=== PATIENT | male | born 1980 | race Caucasian/White ===

== ENCOUNTER 2020-07-23 19:18 | Emergency (ER) | payer OTHER ==
[~2020-07-23] VITALS: Ht 177.8 cm; Wt 61.2 kg
[2020-07-23 19:53] LABS: BASOPHILS ABSOLUTE AUTO 0.08 K/mm3 (0.00-0.23); BASOPHILS PERCENT AUTO 1 % (0-2); EOSINOPHILS ABSOLUTE AUTO 0.16 K/mm3 (0.00-0.68); EOSINOPHILS PERCENT AUTO 2 % (0-6); Hematocrit 35.1 % (37.0-53.0); Hemoglobin 11.4 g/dL (13.5-17.5); IMMATURE GRAN ABSOLUTE AUTO 0.06 K/mm3 (0.00-0.10); IMMATURE GRAN PERCENT AUTO 1 % (0-1); LYMPHOCYTES ABSOLUTE AUTO 3.89 K/mm3 (0.84-5.20); LYMPHOCYTES PERCENT AUTO 43 % (21-46); MONOCYTES ABSOLUTE AUTO 0.46 K/mm3 (0.16-1.47); MONOCYTES PERCENT AUTO 5 % (4-13); Mean Corpuscular HGB 31.2 pg (26.0-34.0); Mean Corpuscular HGB Conc 32.5 g/dL (31.5-36.5); Mean Corpuscular Volume 96 fL (80-100); Mean Platelet Volume 9.3 fL (9.1-12.4); NEUTROPHILS ABSOLUTE AUTO 4.35 K/mm3 (1.96-9.15); NEUTROPHILS PERCENT AUTO 48 % (41-73); Platelet Count 246 K/mm3 (150-400); RDW Coefficient Variation 11.9 % (11.7-14.2); RDW Standard Deviation 41.8 fL (35.1-46.3); Red Blood Cell Count 3.65 M/mm3 (4.30-5.90)
[2020-07-23 20:09] LABS: Alanine Aminotransfer (ALT/SGP 20 U/L (12-78); Albumin, Blood 2.8 g/dL (3.4-5.0); Alk Phos 61 U/L (50-136); Anion Gap 15 mmol/L (6-16); Aspartate Aminotrans (AST/SGOT 11 U/L (12-37); Bilirubin, Total 0.2 mg/dL (0.1-1.0); Blood Urea Nitrogen 9 mg/dL (8-24); CO2, Blood 15 mmol/L (21-32); Calcium, Blood 7.9 mg/dL (8.5-10.1); Chloride, Blood 113 mmol/L (98-108); Creatinine, Blood 1.13 mg/dL (0.60-1.20); Globulin, Blood 2.9 g/dL (2.2-4.0); Glomerular Filtration Rate >60 (60-); Glucose, Blood 241 mg/dL (70-99); Sodium, Blood 143 mmol/L (136-145); Total Protein, Blood 5.7 g/dL (6.4-8.2)
== END 2020-07-23 20:15 | disposition short-term general hospital (02) ==
LOC: EDBD 19:18 → ER 19:18
PROVIDERS: Emergency Medicine
DX: S21.341A Puncture wound with foreign body of right front wall of thorax with penetration into thoracic cavity, initial encounter (principal); S81.831A Puncture wound without foreign body, right lower leg, initial encounter; W34.00XA Accidental discharge from unspecified firearms or gun, initial encounter
CPT/HCPCS: 36430; 70498; 71045; 71260; 72170; 74177; 80053; 85025; 86850; 86900; 86901; 86920; 90714; 96374-59; 96375-59; 99291-25; G0390; J0610; J0690; J3010; J7030; P9016; P9059; Q9967

== ENCOUNTER 2022-09-25 07:03 | Emergency (ER) | payer SELFPAY ==
[~2022-09-25] VITALS: Ht 172.7 cm; Wt 63.5 kg
[2022-09-25 07:09] VITALS: BP 115/75
== END 2022-09-25 10:50 | disposition home or self-care (01) ==
LOC: ER 07:03
DX: S93.402A Sprain of unspecified ligament of left ankle, initial encounter (principal); F17.200 Nicotine dependence, unspecified, uncomplicated; W17.89XA Other fall from one level to another, initial encounter
CPT/HCPCS: 73610; 73620; 99284-25